=== PATIENT | female | born 1955 | race African-American/Black ===

== ENCOUNTER 2018-07-30 12:30 | Emergency (ER) | payer MEDICAID, MEDICARE, OTHER ==
[~2018-07-30] VITALS: Ht 165.1 cm; Wt 54.5 kg
[~2018-07-30 12:30] MED LIST: BENZ1TAB70 PO; FLUP1 PO
[2018-07-30] MEDS ORDERED: LITH300T PO (14:28)
[2018-07-30 15:30] LABS: BASOPHILS % (AUTO) 0.8 % (0.0-2.0); EOSINOPHILS % (AUTO) 0.5 % (1.0-6.0); HEMATOCRIT 39.3 % (36-46); HEMOGLOBIN 13.4 g/dL (12.0-16.0); LYMPHOCYTES # (AUTO) 2.2 K/uL (1.0-4.8); LYMPHOCYTES % (AUTO) 36.9 % (22.0-44.0); MEAN CORPUSCULAR HEMOGLOBIN 33.5 pg (26.0-34.0); MEAN CORPUSCULAR VOLUME 98 fL (80-100); MONOCYTES # (AUTO) 0.5 K/uL (0.1-1.0); MONOCYTES % (AUTO) 7.8 % (2.0-9.0); NEUTROPHILS # (AUTO) 3.2 K/uL (1.8-7.7); PLATELET COUNT (AUTO) 212 K/uL (150-450); RED BLOOD CELL COUNT(AUTO) 3.99 MIL/uL (4.00-5.20)
[2018-07-30 15:35] VITALS: BP 160/76
[2018-07-30 15:35] LABS: PROTHROMBIN TIME 10.6 SEC (9.4-11.6)
[2018-07-30 16:06] LABS: B-TYPE NATRIURETIC PEPTIDE 46 pg/mL (0-100)
[2018-07-30 16:18] LABS: ALANINE AMINOTRANSFERASE 29 U/L (12-78); ALBUMIN 3.2 g/dL (3.4-5.0); ALKALINE PHOSPHATASE 78 U/L (46-116); ASPARTATE AMINOTRANSFERASE 22 U/L (15-37); BILIRUBIN,TOTAL 0.3 mg/dL (0.1-1.0); CALCIUM, TOTAL 8.2 mg/dL (8.8-10.5); CHLORIDE 105 mmol/L (98-107); CREATINE KINASE, TOTAL ONLY 177 U/L (26-192); CREATININE 0.64 mg/dL (0.60-1.30); GLOMERULAR FILTR. RATE CALC > 60 mL/min (>60); GLUCOSE,RANDOM 73 mg/dL (70-110); POTASSIUM 3.1 mmol/L (3.5-5.1); SODIUM SERUM 142 mmol/L (136-145); TOTAL PROTEIN, SERUM 7.1 g/dL (6.4-8.2); UREA NITROGEN, BLOOD 9 mg/dL (7-18)
[2018-07-30 16:23] LABS: ANION GAP 12 mmol/L (8-16); CARBON DIOXIDE 25 mmol/L (22-29)
[2018-07-30] MEDS ORDERED: POTASSIUM CHLORIDE 20 MEQ ER TABLET PO ONE (16:45)
== END 2018-07-30 17:04 | disposition home or self-care (01) ==
LOC: EMS 12:32
DX: F20.9 Schizophrenia, unspecified (principal); R07.9 Chest pain, unspecified; F32.9 Major depressive disorder, single episode, unspecified; I10 Essential (primary) hypertension; F41.9 Anxiety disorder, unspecified; F17.210 Nicotine dependence, cigarettes, uncomplicated; Z59.0 Homelessness
CPT/HCPCS: 36415; 71045; 80053; 82550; 83880; 84484; 85025; 85610; 85730; 93005; 99285; G0480

== ENCOUNTER 2019-08-25 15:37 | Emergency (ER) | payer MEDICARE, OTHER ==
[~2019-08-25] VITALS: Ht 165.1 cm; Wt 56.8 kg
[~2019-08-25 15:37] MED LIST changes: +BENZ0.5T44 PO; -BENZ1TAB70 PO; -FLUP1 PO; +LITH300T PO
[2019-08-25 15:45] VITALS: BP 150/80
[2019-08-25 16:12] LABS: BASOPHILS % (AUTO) 0.4 % (0.0-2.0); EOSINOPHILS % (AUTO) 0.7 % (1.0-6.0); HEMATOCRIT 37.4 % (36-46); HEMOGLOBIN 12.7 g/dL (12.0-16.0); LYMPHOCYTES # (AUTO) 1.7 K/uL (1.0-4.8); LYMPHOCYTES % (AUTO) 30.1 % (22.0-44.0); MEAN CORPUSCULAR HEMOGLOBIN 34.4 pg (26.0-34.0); MEAN CORPUSCULAR HGB CONC 34.1 G/dL (31.0-37.0); MEAN CORPUSCULAR VOLUME 101 fL (80-100); MONOCYTES # (AUTO) 0.4 K/uL (0.1-1.0); MONOCYTES % (AUTO) 7.1 % (2.0-9.0); NEUTROPHILS # (AUTO) 3.4 K/uL (1.8-7.7); NEUTROPHILS % (AUTO) 61.7 % (40.0-70.0); PLATELET COUNT (AUTO) 261 K/uL (150-450); RED CELL DISTRIBUTION WIDTH 13.1 % (11.5-14.5)
[2019-08-25 16:21] LABS: ANION GAP 7 mmol/L (8-16); CALCIUM, TOTAL 8.3 mg/dL (8.8-10.5); CARBON DIOXIDE 27 mmol/L (22-29); CHLORIDE 105 mmol/L (98-107); CREATININE 0.89 mg/dL (0.60-1.30); GLOMERULAR FILTR. RATE CALC > 60 mL/min (>60); GLUCOSE,RANDOM 88 mg/dL (70-110); POTASSIUM 3.6 mmol/L (3.5-5.1); SODIUM SERUM 139 mmol/L (136-145); UREA NITROGEN, BLOOD 7 mg/dL (7-18)
== END 2019-08-25 17:22 | disposition home or self-care (01) ==
LOC: EMS 15:40
DX: F20.9 Schizophrenia, unspecified (principal); R07.89 Other chest pain; I10 Essential (primary) hypertension; F41.9 Anxiety disorder, unspecified; F32.9 Major depressive disorder, single episode, unspecified; F17.210 Nicotine dependence, cigarettes, uncomplicated; F11.90 Opioid use, unspecified, uncomplicated; Z79.899 Other long term (current) drug therapy; Z59.0 Homelessness
CPT/HCPCS: 93005

== ENCOUNTER 2024-10-12 13:14 | Inpatient (IN) | payer MEDICARE, MEDICAID ==
[~2024-10-12] VITALS: Ht 154.9 cm; Wt 55.8 kg
[~2024-10-12 13:14] MED LIST changes: -BENZ0.5T44 PO; +BENZ0.5T52 PO
[2024-10-12 13:40] VITALS: O2SAT 99
[2024-10-12] MEDS ORDERED: HALOPERIDOL LACTATE 5 MG/ML VIAL IM ONE (13:45)
[2024-10-12] MEDS ORDERED: DiphenhydrAMINE HCL 50 MG/ML VIAL IM ONE (13:45)
[2024-10-12] MEDS ORDERED: LORazepam 2 MG/ML VIAL IM ONE (13:45)
[2024-10-12] MEDS: DiphenhydrAMINE HCL 50 MG/ML VIAL IM ONE (13:56)
[2024-10-12] MEDS: LORazepam 2 MG/ML VIAL IM ONE (13:56)
[2024-10-12] MEDS: HALOPERIDOL LACTATE 5 MG/ML VIAL IM ONE (13:56)
[2024-10-12] MEDS ORDERED: LORazepam 2 MG TABLET PO PRN (15:30)
[2024-10-12] MEDS ORDERED: ZOLPIDEM TARTRATE 10 MG TABLET PO PRN (15:30)
[2024-10-12 15:46] LABS: COVID AG,FIA SOURCE NASAL SWAB
[2024-10-12 16:03] LABS: SARS-COV2 (COVID) ANTIGEN,FIA Negative (Negative)
[2024-10-12 16:51] LABS: BASOPHILS % (AUTO) 0.4 % (0.0-2.0); EOSINOPHILS % (AUTO) 0.5 % (1.0-6.0); HEMATOCRIT 34.4 % (36-46); HEMOGLOBIN 11.4 g/dL (12.0-16.0); LYMPHOCYTES # (AUTO) 1.6 K/uL (1.0-4.8); LYMPHOCYTES % (AUTO) 21.7 % (22.0-44.0); MEAN CORPUSCULAR HEMOGLOBIN 32.9 pg (26.0-34.0); MEAN CORPUSCULAR HGB CONC 33.1 G/dL (31.0-37.0); MEAN CORPUSCULAR VOLUME 99 fL (80-100); MONOCYTES # (AUTO) 0.9 K/uL (0.1-1.0); MONOCYTES % (AUTO) 12.3 % (2.0-9.0); NEUTROPHILS # (AUTO) 4.8 K/uL (1.8-7.7); NEUTROPHILS % (AUTO) 65.1 % (40.0-70.0); PLATELET COUNT (AUTO) 311 K/uL (150-450); RED BLOOD CELL COUNT(AUTO) 3.47 MIL/uL (4.00-5.20); RED CELL DISTRIBUTION WIDTH 13.5 % (11.5-14.5); WHITE BLOOD COUNT (AUTO) 7.4 K/uL (4.5-11.0)
[2024-10-12 16:58] LABS: ANION GAP 7 mmol/L (8-16); CALCIUM, TOTAL 8.1 mg/dL (8.8-10.5); CARBON DIOXIDE 29 mmol/L (22-29); CHLORIDE 104 mmol/L (98-107); CREATININE 0.93 mg/dL (0.60-1.30); GLOMERULAR FILTR. RATE CALC > 60 mL/min (>60); GLUCOSE,RANDOM 78 mg/dL (70-110); POTASSIUM 3.6 mmol/L (3.5-5.1); SODIUM SERUM 139 mmol/L (136-145); UREA NITROGEN, BLOOD 16 mg/dL (7-18)
[2024-10-12 17:10] LABS: ALCOHOL, BLOOD (SERUM) < 3 mg/dL (0-10)
[2024-10-13 06:34] VITALS: BP 148/78; PULSE 72; RESP 18; TEMP 97.7; O2SAT 99
[2024-10-13] MEDS ORDERED: CloNIDine HCL 0.1 MG TABLET PO PRN (07:15)
[2024-10-13] MEDS ORDERED: GuaiFENesin/D-METHORPHAN [SUGAR-FREE] 200-20MG/10 ML SYRUP UDCUP PO PRN (07:15)
[2024-10-13] MEDS ORDERED: MAGNESIUM HYDROXIDE SUSPENSION 30 ML UDCUP PO PRN (07:15)
[2024-10-13] MEDS ORDERED: DOCUSATE SODIUM 100 MG CAPSULE PO PRN (07:15)
[2024-10-13] MEDS ORDERED: PETROLATUM,WHITE 28 GM JELLY TP PRN (07:15)
[2024-10-13] MEDS ORDERED: NICOTINE 14 MG/24 HOUR PATCH TD PRN (07:15)
[2024-10-13] MEDS ORDERED: LOPERAMIDE HCL 2 MG CAPSULE PO PRN (07:15)
[2024-10-13] MEDS ORDERED: ALBUTEROL SULFATE HFA 90 MCG/PUFF 8 GM INHALER IH PRN (07:15)
[2024-10-13 08:40] VITALS: BP 137/77; PULSE 75; RESP 16; TEMP 98.2; O2SAT 99
[2024-10-13] MEDS: BENZTROPINE MESYLATE 1 MG TABLET PO SCH (17:00)
[2024-10-13] MEDS: LITHIUM CARBONATE 300 MG CAPSULE PO SCH (17:00)
[2024-10-13] MEDS: RisperiDONE 1 MG TABLET PO SCH (17:00)
[2024-10-13 20:11] VITALS: BP 138/82; PULSE 85; RESP 16; TEMP 97.9; O2SAT 98
[2024-10-14 08:11] VITALS: BP 122/68; PULSE 84; RESP 17; TEMP 97.6; O2SAT 95
[2024-10-14] MEDS: MAG HYDROX/ALUMINUM HYD/SIMETH ES 30 ML SUSPENSION UDCUP PO PRN (19:45)
[2024-10-14 20:24] VITALS: BP 143/84; PULSE 77; RESP 18; TEMP 97.8; O2SAT 97
[2024-10-15 08:21] VITALS: BP 122/71; PULSE 73; RESP 18; TEMP 97.8; O2SAT 98
[2024-10-15] MEDS: ONDANSETRON 4 MG TABLET PO PRN (17:27)
[2024-10-15 20:44] VITALS: BP 122/77; PULSE 99; RESP 16; TEMP 98.3; O2SAT 98
[2024-10-16 08:15] VITALS: BP 102/68; PULSE 91; RESP 17; TEMP 97.9; O2SAT 95
[2024-10-16 09:51] LABS: APPEARANCE,URINE TURBID (CLEAR); BILIRUBIN,URINE NEGATIVE (NEGATIVE); COLOR,URINE ORANGE (YELLOW); GLUCOSE, URINE (UA) NEGATIVE (NEGATIVE); KETONES,URINE TRACE mg/dL (NEGATIVE); LEUKOCYTE ESTERASE ,URINE LARGE (NEGATIVE); NITRATE,URINE NEGATIVE (NEGATIVE); OCCULT BLOOD,URINE SMALL (NEGATIVE); PH,URINE 5.5 (5.0-8.0); PH,URINE DRUG SCREEN 5.5 (5.0-8.0); PROTEIN,URINE 100-200,SEE CONFIRM mg/dL (NEGATIVE); SPECIFIC GRAVITIY, URINE 1.037 (1.003-1.030); UROBILINOGEN,URINE <=1.0 mg/dL (<=1.0)
[2024-10-16 09:54] LABS: ALCOHOL, URINE DRUG SCREEN NEGATIVE (NEGATIVE); AMPHET/METH SCREEN,URINE NEGATIVE (NEGATIVE); BARBITURATE SCREEN, URINE NEGATIVE (NEGATIVE); BENZODIAZEPINES SCREEN,URINE NEGATIVE (NEGATIVE); CANNABINOID SCREEN,URINE NEGATIVE (NEGATIVE); COCAINE SCREEN,URINE POSITIVE (NEGATIVE); METHADONE SCREEN, URINE NEGATIVE (NEGATIVE); OPIATE SCREEN,URINE NEGATIVE (NEGATIVE); PHENCYCLIDINE SCREEN,URINE NEGATIVE (NEGATIVE)
[2024-10-16 11:11] LABS: BACTERIA,URINE Moderate /HPF (None Seen); RBC,URINE 0-2 /HPF (0-2); SULFOSALICYLIC ACID,URINE 1+ (Negative)
[2024-10-16 11:12] LABS: SQUAMOUS EPITHELIAL CELL,UR Few /LPF (None Seen)
[2024-10-16 20:13] VITALS: BP 124/64; PULSE 100; RESP 18; TEMP 97.4; O2SAT 98
[2024-10-17 08:27] VITALS: BP 101/67; PULSE 91; RESP 16; TEMP 97.3; O2SAT 95
[2024-10-17] MEDS: CEPHALEXIN MONOHYDRATE 500 MG CAPSULE PO SCH (20:42)
[2024-10-18 08:35] VITALS: BP 102/64; PULSE 80; RESP 19; TEMP 97.8; O2SAT 96
[2024-10-18] MEDS: INFLUENZA VIRUS VACCINE TVS (6MO+) 2024-25/PF 45 MCG/0.5 ML SYRINGE IM. ONE (13:00)
[2024-10-18 21:09] VITALS: BP 104/62; PULSE 94; RESP 18; TEMP 98.7; O2SAT 97
[2024-10-19] MEDS: MULTIVITAMINS WITH MINERALS, THERAPEUTIC TABLET PO SCH (09:00)
[2024-10-19 09:18] VITALS: BP 114/64; PULSE 78; RESP 18; TEMP 97.5; O2SAT 97
[2024-10-19 20:00] VITALS: BP 112/61; PULSE 84; RESP 16; TEMP 98.4; O2SAT 98
[2024-10-20 08:04] VITALS: BP 115/60; PULSE 79; RESP 16; TEMP 98.7; O2SAT 100
[2024-10-20 09:25] LABS: ANION GAP 5 mmol/L (8-16); CALCIUM, TOTAL 8.4 mg/dL (8.8-10.5); CARBON DIOXIDE 29 mmol/L (22-29); CHLORIDE 103 mmol/L (98-107); CHOL/HDL RATIO 2.3 (3.9-5.7); CHOLESTEROL 133 mg/dL (131-200); CREATININE 1.07 mg/dL (0.60-1.30); GLOMERULAR FILTR. RATE CALC > 60 mL/min (>60); GLUCOSE,RANDOM 111 mg/dL (70-110); HDL CHOLESTEROL 57 mg/dL (40-60); LDL CHOL (CALC.) 68 mg/dL (0-130); SODIUM SERUM 137 mmol/L (136-145); THYROID STIMULATING HORMONE 1.26 uIU/mL (0.36-3.74); TRIGLYCERIDES 40 mg/dL (15-150); UREA NITROGEN, BLOOD 25 mg/dL (7-18)
[2024-10-20 20:29] VITALS: BP 112/76; PULSE 89; RESP 15; TEMP 98.1; O2SAT 98
[2024-10-21 08:12] VITALS: BP 120/74; PULSE 90; RESP 17; TEMP 94.3; O2SAT 87
[2024-10-21] MEDS: LURASIDONE HCL 20 MG TABLET PO SCH (16:32)
[2024-10-21 22:09] VITALS: BP 102/58; PULSE 75; RESP 18; TEMP 97.5; O2SAT 98
[2024-10-22 08:35] VITALS: BP 110/57; PULSE 72; RESP 18; TEMP 98.2; O2SAT 100
[2024-10-22 20:10] VITALS: BP 107/61; PULSE 78; RESP 18; TEMP 98.3
[2024-10-23 08:28] VITALS: BP 108/59; PULSE 72; RESP 18; TEMP 98.2; O2SAT 96
[2024-10-23 20:16] VITALS: BP 120/57; PULSE 75; RESP 18; TEMP 97.5; O2SAT 97
[2024-10-24 08:30] VITALS: BP 113/62; PULSE 80; RESP 18; TEMP 98.3; O2SAT 95
[2024-10-24 20:17] VITALS: BP 115/56; PULSE 75; RESP 18; TEMP 98.1; O2SAT 99
[2024-10-25 08:27] VITALS: BP 115/61; PULSE 75; RESP 18; TEMP 98; O2SAT 96
[2024-10-25 20:24] VITALS: BP 107/58; PULSE 81; RESP 16; TEMP 97.2; O2SAT 98
[2024-10-26 08:22] VITALS: BP 102/61; PULSE 83; RESP 18; TEMP 97.8; O2SAT 96
[2024-10-26 20:52] VITALS: BP 116/63; PULSE 73; RESP 18; TEMP 97.7; O2SAT 97
[2024-10-27 08:26] VITALS: BP 104/52; PULSE 72; RESP 17; TEMP 93.8; O2SAT 98
[2024-10-27 22:47] VITALS: BP 104/60; PULSE 68; RESP 18; TEMP 96.8; O2SAT 99
[2024-10-28 20:25] VITALS: BP 100/59; PULSE 74; RESP 1; TEMP 97.7; O2SAT 99
[2024-10-29 08:45] VITALS: BP 106/56; PULSE 64; RESP 17; TEMP 97.8; O2SAT 98
[2024-10-29 20:25] VITALS: BP 110/64; PULSE 73; RESP 18; TEMP 97.4; O2SAT 99
[2024-10-30 08:28] VITALS: BP 101/62; PULSE 72; RESP 16; TEMP 97.6; O2SAT 99
[2024-10-30 20:13] VITALS: BP 101/65; PULSE 72; RESP 19; TEMP 97.8; O2SAT 100
[2024-10-31 08:25] VITALS: BP 109/60; PULSE 78; RESP 18; TEMP 97.6; O2SAT 95
[2024-10-31 20:00] VITALS: BP 105/70; PULSE 90; RESP 18; TEMP 98.4; O2SAT 100
[2024-11-01 09:08] VITALS: BP 105/56; PULSE 62; RESP 15; TEMP 96.9; O2SAT 95
[2024-11-01 20:41] VITALS: BP 133/67; PULSE 84; RESP 17; TEMP 97.2; O2SAT 98
[2024-11-02 08:26] VITALS: BP 123/59; PULSE 72; RESP 16; TEMP 97.6; O2SAT 100
[2024-11-02 23:03] VITALS: BP 107/55; PULSE 88; RESP 16; TEMP 97.9; O2SAT 96
[2024-11-03 08:12] VITALS: BP 96/56; PULSE 72; RESP 16; TEMP 97.8; O2SAT 100
[2024-11-03 20:14] VITALS: BP 122/66; PULSE 75; RESP 18; TEMP 97.9
[2024-11-04 13:14] VITALS: BP 106/57; PULSE 80; RESP 18; TEMP 97.7; O2SAT 97
[2024-11-04 20:14] VITALS: BP 111/67; PULSE 80; RESP 18; TEMP 98.1; O2SAT 98
[2024-11-05 08:23] VITALS: BP 108/62; PULSE 73; RESP 18; TEMP 98.1; O2SAT 95
[2024-11-05 20:20] VITALS: BP 120/64; PULSE 72; RESP 18; TEMP 98.2; O2SAT 97
[2024-11-06 08:13] VITALS: BP 115/61; PULSE 79; RESP 18; TEMP 97.9; O2SAT 95
[2024-11-06 20:07] VITALS: BP 110/81; PULSE 77; RESP 18; TEMP 98; O2SAT 97
[2024-11-07 08:18] VITALS: BP 108/61; PULSE 75; RESP 17; TEMP 98.7; O2SAT 99
[2024-11-07 20:47] VITALS: BP 96/55; PULSE 67; RESP 18; TEMP 98.1; O2SAT 99
[2024-11-08 08:45] VITALS: BP 127/60; PULSE 68; RESP 17; TEMP 97.7; O2SAT 99
[2024-11-08 20:33] VITALS: BP 126/74; PULSE 84; RESP 17; TEMP 97.6; O2SAT 99
[2024-11-09 08:00] VITALS: BP 120/62; PULSE 70; RESP 18; TEMP 97.7; O2SAT 98
[2024-11-09 20:13] VITALS: BP 113/57; PULSE 68; RESP 18; TEMP 98; O2SAT 97
[2024-11-10 08:27] VITALS: BP 104/59; PULSE 78; RESP 16; TEMP 97.9; O2SAT 75
[2024-11-10 21:12] VITALS: BP 102/72; PULSE 72; RESP 16; TEMP 98; O2SAT 96
[2024-11-11 08:57] VITALS: BP 104/60; PULSE 66; RESP 17; TEMP 98.2; O2SAT 98
[2024-11-11 20:25] VITALS: BP 110/62; PULSE 67; RESP 17; TEMP 97.8; O2SAT 97
[2024-11-12 08:35] VITALS: BP 113/60; PULSE 69; RESP 18; TEMP 98.1; O2SAT 97
[2024-11-12 20:15] VITALS: BP 114/63; PULSE 67; RESP 18; TEMP 97; O2SAT 97
[2024-11-13 08:26] VITALS: BP 125/62; PULSE 65; RESP 17; TEMP 97.5; O2SAT 97
[2024-11-13 09:05] LABS: BASOPHILS % (AUTO) 0.9 % (0.0-2.0); EOSINOPHILS % (AUTO) 2.8 % (1.0-6.0); HEMATOCRIT 36.3 % (36-46); HEMOGLOBIN 12.2 g/dL (12.0-16.0); LYMPHOCYTES # (AUTO) 1.4 K/uL (1.0-4.8); LYMPHOCYTES % (AUTO) 31.2 % (22.0-44.0); MEAN CORPUSCULAR HEMOGLOBIN 33.5 pg (26.0-34.0); MEAN CORPUSCULAR HGB CONC 33.5 G/dL (31.0-37.0); MEAN CORPUSCULAR VOLUME 100 fL (80-100); MONOCYTES # (AUTO) 0.7 K/uL (0.1-1.0); MONOCYTES % (AUTO) 15.3 % (2.0-9.0); NEUTROPHILS # (AUTO) 2.3 K/uL (1.8-7.7); NEUTROPHILS % (AUTO) 49.8 % (40.0-70.0); PLATELET COUNT (AUTO) 251 K/uL (150-450); RED BLOOD CELL COUNT(AUTO) 3.63 MIL/uL (4.00-5.20); RED CELL DISTRIBUTION WIDTH 14.4 % (11.5-14.5); WHITE BLOOD COUNT (AUTO) 4.6 K/uL (4.5-11.0)
[2024-11-13 21:01] VITALS: BP 108/85; PULSE 70; RESP 18; TEMP 97.9; O2SAT 96
[2024-11-14 08:14] VITALS: BP 99/53; PULSE 81; RESP 16; TEMP 98.4; O2SAT 96
[2024-11-14 20:09] VITALS: BP 102/61; PULSE 72; RESP 18; TEMP 97.8; O2SAT 96
[2024-11-15 08:19] VITALS: BP 105/60; PULSE 60; RESP 18; TEMP 97.4; O2SAT 97
[2024-11-15] MEDS: HALOPERIDOL 5 MG TABLET PO PRN (18:33)
[2024-11-15 20:07] VITALS: BP 106/57; PULSE 61; RESP 16; TEMP 98.3; O2SAT 98
[2024-11-16 08:13] VITALS: BP 107/60; PULSE 63; RESP 16; TEMP 97.6; O2SAT 96
[2024-11-16 20:00] VITALS: BP 137/76; PULSE 79; RESP 16; TEMP 97.3; O2SAT 97
[2024-11-17 08:42] VITALS: BP 100/60; PULSE 77; RESP 16; TEMP 97.6; O2SAT 99
[2024-11-17 20:00] VITALS: BP 106/60; PULSE 75; RESP 16; TEMP 98.8; O2SAT 99
[2024-11-18 20:08] VITALS: BP 102/58; PULSE 74; RESP 16; TEMP 98.4; O2SAT 96
[2024-11-19 08:41] VITALS: BP 110/60; PULSE 87; RESP 18; TEMP 98.1; O2SAT 95
[2024-11-19 20:14] VITALS: BP 113/61; PULSE 71; RESP 18; TEMP 97.9; O2SAT 98
[2024-11-20 08:13] VITALS: BP 134/64; PULSE 78; RESP 17; TEMP 97.6; O2SAT 99
[2024-11-20 20:40] VITALS: BP 107/58; PULSE 69; RESP 18; TEMP 98; O2SAT 96
[2024-11-21 08:27] VITALS: BP 126/65; PULSE 81; RESP 17; TEMP 97.2; O2SAT 95
[2024-11-21 20:25] VITALS: BP 110/56; PULSE 73; RESP 18; TEMP 97.5; O2SAT 99
[2024-11-22 08:12] VITALS: BP 107/59; PULSE 70; RESP 17; TEMP 97.5; O2SAT 97
[2024-11-22 22:00] VITALS: BP 118/60; PULSE 60; RESP 18; TEMP 98.7; O2SAT 98
[2024-11-23 08:05] VITALS: BP 109/51; PULSE 70; RESP 18; TEMP 109; O2SAT 98
[2024-11-23 20:44] VITALS: BP 124/58; PULSE 82; RESP 18; TEMP 98.2; O2SAT 98
[2024-11-24 08:45] VITALS: BP 109/57; PULSE 88; RESP 18; TEMP 97.2; O2SAT 98
[2024-11-24 21:00] VITALS: BP 104/59; PULSE 61; RESP 18; TEMP 97.9; O2SAT 97
[2024-11-25 08:39] VITALS: BP 103/62; PULSE 74; RESP 18; TEMP 97.3; O2SAT 99
[2024-11-25 21:38] VITALS: BP 109/64; PULSE 82; RESP 18; TEMP 98.7; O2SAT 98
[2024-11-26 08:38] VITALS: BP 130/73; PULSE 64; RESP 18; TEMP 97.9; O2SAT 97
[2024-11-26] MEDS: LURASIDONE HCL 20 MG TABLET PO SCH (16:50)
[2024-11-26 20:12] VITALS: BP 109/71; PULSE 90; RESP 18; TEMP 97.6; O2SAT 95
[2024-11-27 08:00] VITALS: BP 137/59; PULSE 79; RESP 16; TEMP 97.9; O2SAT 96
[2024-11-27 20:14] VITALS: BP 123/69; PULSE 74; RESP 18; TEMP 98.1; O2SAT 99
[2024-11-28 08:39] VITALS: BP 110/51; PULSE 69; RESP 17; TEMP 94.1; O2SAT 98
[2024-11-28 20:12] VITALS: BP 109/66; PULSE 71; RESP 18; TEMP 97.8; O2SAT 97
[2024-11-29 08:23] VITALS: BP 117/71; PULSE 73; RESP 16; TEMP 97.3; O2SAT 98
[2024-11-29 20:38] VITALS: BP 118/66; PULSE 74; RESP 17; TEMP 98.8; O2SAT 95
[2024-11-30 08:23] VITALS: BP 119/66; PULSE 68; RESP 17; TEMP 97.5; O2SAT 95
[2024-11-30 20:39] VITALS: BP 119/63; PULSE 67; RESP 17; TEMP 97.8; O2SAT 98
[2024-12-01 09:16] VITALS: BP 131/77; PULSE 77; RESP 16; TEMP 97.5; O2SAT 95
[2024-12-01 20:58] VITALS: BP 128/79; PULSE 92; RESP 17; TEMP 98.4; O2SAT 99
[2024-12-02 09:10] VITALS: BP 92/61; PULSE 74; RESP 17; TEMP 98; O2SAT 99
[2024-12-02 20:36] VITALS: BP 109/63; PULSE 80; RESP 18; TEMP 97.9; O2SAT 95
[2024-12-03 08:32] VITALS: BP 113/57; PULSE 69; RESP 18; TEMP 98.1; O2SAT 98
[2024-12-03 20:31] VITALS: BP 123/58; PULSE 90; RESP 18; TEMP 97.6; O2SAT 96
[2024-12-04 08:26] VITALS: BP 103/60; PULSE 74; RESP 19; TEMP 98.1; O2SAT 99
[2024-12-04 20:36] VITALS: BP 115/50; PULSE 78; RESP 18; TEMP 97.3; O2SAT 100
[2024-12-05 09:11] VITALS: BP 101/61; PULSE 72; RESP 16; TEMP 97.8; O2SAT 96
[2024-12-05 20:35] VITALS: BP 120/60; PULSE 84; RESP 18; TEMP 97.7; O2SAT 93
[2024-12-06 08:37] VITALS: BP 125/65; PULSE 63; RESP 16; TEMP 98; O2SAT 95
[2024-12-06 21:39] VITALS: BP 110/58; PULSE 77; RESP 16; TEMP 98.2; O2SAT 98
[2024-12-07 08:52] VITALS: BP 109/59; PULSE 104; PULSE 75; RESP 16; TEMP 98.1; O2SAT 98
[2024-12-07 09:16] VITALS: RESP 16
[2024-12-07] MEDS: IBUPROFEN 400 MG TABLET PO PRN (09:16)
[2024-12-07 10:16] VITALS: RESP 17
[2024-12-07 20:28] VITALS: BP 123/73; PULSE 66; RESP 16; TEMP 98.1; O2SAT 99
[2024-12-08 08:47] VITALS: BP 103/63; PULSE 88; RESP 18; TEMP 97.5; O2SAT 98
[2024-12-08 21:00] VITALS: BP 116/64; PULSE 80; RESP 16; TEMP 97.7; O2SAT 98
[2024-12-09 08:35] VITALS: BP 133/69; PULSE 82; RESP 16; TEMP 96.5; O2SAT 97
[2024-12-09 20:25] VITALS: BP 115/60; PULSE 70; RESP 16; TEMP 98.5; O2SAT 99
[2024-12-10 07:55] VITALS: BP 144/96; PULSE 64; RESP 17; TEMP 96.8; O2SAT 96
[2024-12-10 20:16] VITALS: BP 144/68; PULSE 85; RESP 18; TEMP 98.6; O2SAT 98
[2024-12-11 08:10] VITALS: BP 125/75; PULSE 78; RESP 17; TEMP 98.2; O2SAT 100
[2024-12-11] MEDS: ACETAMINOPHEN 325 MG TABLET PO PRN (11:13)
[2024-12-11 13:13] VITALS: RESP 18
[2024-12-11] MEDS: TUBERCULIN, PURIFIED PROTEIN DERIVATIVE 5 TU/0.1 ML SYRINGE ID ONE (15:55)
[2024-12-11 20:17] VITALS: BP 108/68; PULSE 82; RESP 16; TEMP 98.1; O2SAT 98
[2024-12-12 08:00] VITALS: BP 126/55; PULSE 80; RESP 18; TEMP 97.5; O2SAT 99
[2024-12-12 20:09] VITALS: BP 105/94; PULSE 84; RESP 18; TEMP 97.5; O2SAT 97
[2024-12-13 07:57] LABS: TROPONIN I-HIGH SENSITIVITY 5 ng/L (<51)
[2024-12-13 08:34] VITALS: BP 134/80; PULSE 77; RESP 17; TEMP 97.8; O2SAT 97
[2024-12-13 09:01] VITALS: BP 134/80; PULSE 77; RESP 17; TEMP 97.8; O2SAT 95
[2024-12-13 20:00] VITALS: BP 104/67; PULSE 76; RESP 16; TEMP 97.6; O2SAT 95
[2024-12-13 20:11] VITALS: RESP 17
[2024-12-13 21:11] VITALS: RESP 16
[2024-12-14 08:35] VITALS: BP 100/62; PULSE 68; RESP 16; TEMP 97.2; O2SAT 99
[2024-12-14] MEDS: PNEUMOCOCCAL VACCINE POLYVALENT 0.5 ML SYRINGE [PPSV23] IM. ONE (13:03)
[2024-12-14] MEDS ORDERED: ChlorproMAZINE HCL 50 MG/2 ML AMP IM PRN ×2 (19:00→20:00)
[2024-12-14 20:32] VITALS: BP 109/67; PULSE 69; RESP 16; TEMP 97.5; O2SAT 98
[2024-12-15 08:43] VITALS: BP 118/63; PULSE 82; RESP 16; TEMP 97.5; O2SAT 95
[2024-12-15 20:23] VITALS: BP 113/74; PULSE 70; RESP 18; TEMP 98.1; O2SAT 99
[2024-12-16 08:12] VITALS: BP 129/60; PULSE 68; RESP 15; TEMP 98; O2SAT 99
[2024-12-16 20:12] VITALS: BP 135/74; PULSE 81; RESP 18; TEMP 97.2; O2SAT 95
[2024-12-17 08:17] VITALS: BP 124/60; PULSE 79; RESP 16; TEMP 97.1; O2SAT 98
[2024-12-17 20:55] VITALS: BP 105/57; PULSE 76; RESP 16; TEMP 97.8; O2SAT 95
[2024-12-18 08:38] VITALS: BP 123/59; PULSE 83; RESP 18; TEMP 96.4; O2SAT 98
[2024-12-18 21:43] VITALS: RESP 18
[2024-12-19 08:52] VITALS: BP 119/64; PULSE 82; RESP 17; TEMP 97.1; O2SAT 98
[2024-12-20 08:26] LABS: GLUCOMETER DEV NAME(LOC) POC.BV; POC SARS-COV2 AG, FIA NEGATIVE (NEGATIVE)
[2024-12-20 08:41] VITALS: BP 144/70; PULSE 81; RESP 18; TEMP 97.2; O2SAT 96
[2024-12-20] MEDS ORDERED: LURA20TA PO (12:23)
[2024-12-20] MEDS ORDERED: LITH300C3 PO (12:26)
[2024-12-20] MEDS ORDERED: BENZ-247 PO (12:27)
== END 2024-12-20 14:52 | DRG 885 ==
LOC: EMS 13:22 → B2X 18:32
PROVIDERS: ADMIT Psychiatry & Neurology Child & Adolescent Psychiatry; ATTEND Psychiatry & Neurology Child & Adolescent Psychiatry
PROC: GZHZZZZ Group Psychotherapy (ICD-10-PCS; principal; 2024-10-13)
PROC: GZ52ZZZ Individual Psychotherapy, Cognitive (ICD-10-PCS; 2024-10-13)
PROC: GZ56ZZZ Individual Psychotherapy, Supportive (ICD-10-PCS; 2024-10-13)
DX: F20.0 Paranoid schizophrenia (principal); N39.0 Urinary tract infection, site not specified; F32.A Depression, unspecified; I10 Essential (primary) hypertension; Z20.822 Contact with and (suspected) exposure to COVID-19; Z87.891 Personal history of nicotine dependence; F14.90 Cocaine use, unspecified, uncomplicated; F41.9 Anxiety disorder, unspecified; Z78.1 Physical restraint status
CPT/HCPCS: 80048; 80061; 80178; 80307; 81001; 81002; 84443; 84484; 85025; 87086; 90732; G0480; J1200; J1630; J2060; Q0162